=== PATIENT | male | born 1955 | race Caucasian/White ===

== ENCOUNTER 2019-08-08 11:50 | Emergency (ER) | payer MEDICARE, OTHER ==
[~2019-08-08] VITALS: Ht 185.4 cm; Wt 90.3 kg
--- NOTE | 2019-08-08 12:15 | ED Upper Extremity ---
General Chief Complaint: Upper Extremity Stated Complaint: LT WRIST INJ Source: patient Exam Limitations: no limitations History of Present Illness Date Seen by Provider: Aug 08, 2019 Time Seen by Provider: 12:05 Initial Comments The patient is a pleasant 64-year-old male who presents for evaluation of a left distal forearm and wrist injury. He states that he fell down last night. He has a superficial abrasion to the right forehead but denies any head pain or neck injury and did not lose consciousness. He is not anticoagulated. He is up-to-date with tetanus. He is alert and oriented 4, calm, and appears to be in no distress this time. Onset: yesterday Pain/Injury Location: left forearm (distal injury), left wrist (injury) Method of Injury: fell Modifying Factors: Improves With Movement (makes it worse) Allergies and Home Medications Patient Home Medication List Home Medication List Reviewed: Yes Review of Systems Constitutional: no symptoms reported EENTM: no symptoms reported Respiratory: no symptoms reported Cardiovascular: no symptoms reported Gastrointestinal: no symptoms reported Genitourinary: no symptoms reported Musculoskeletal: other (left distal forearm/wrist injury) Skin: no symptoms reported Psychiatric/Neurological: No Symptoms Reported All Other Systems Reviewed Negative Unless Noted: Yes Past Ameqldw-Ysmsek-Gjflyp Hx Past Med/Social Hx: Reviewed Nursing Past Med/Soc Hx Patient Social History Recent Foreign Travel: No Physical Exam Vital Signs Vital Signs - First Documented 08/08/19 12:00 Temp 36.7 Pulse 96 Resp 18 B/P (MAP) 146/86 (106) Pulse Ox 98 O2 Delivery Room Air Capillary Refill : Height, Weight, BMI Height: '" Weight: lbs. oz. kg; BMI Method: General Appearance: WD/WN, no apparent distress HEENT: PERRL/EOMI, pharynx normal, other (abrasion to right forehead) Neck: non-tender, full range of motion, supple, normal inspection Cardiovascular: regular rate, rhythm, no edema, no JVD Respiratory: chest non-tender, lungs clear, normal breath sounds, no respiratory distress Gastrointestinal: normal bowel sounds, non tender, soft Shoulder: normal inspection, non-tender, no evidence of injury, normal ROM Elbow/Forearm: normal inspection, non-tender, no evidence of injury, normal ROM Wrist: Yes soft tissue tenderness (left wrist), Yes swelling (left distal forearm and wrist) Hand: bone tenderness (left distal forearm dorsally) Neurologic/Tendon: normal sensation, normal motor functions, normal tendon functions Neurologic/Psychiatric: yarn hauler II-XII nml as tested, no motor/sensory deficits, alert, normal mood/affect, oriented x 3 Skin: normal color, warm/dry Progress/Results/Core Measures Results/Orders My Orders Orders - YON SILVA DO Wrist 2 View Left (08/08/19 12:12) Forearm 2 View Left (08/08/19 12:12) Vital Signs/I&O 08/08/19 12:00 Temp 36.7 Pulse 96 Resp 18 B/P (MAP) 146/86 (106) Pulse Ox 98 O2 Delivery Room Air Progress Progress Note : Progress Note @1315 - patient updated on imaging results which are unremarkable. Advised patient to follow up with his PCP in the next 1-2 days. Velcro wrist splint applied for comfort. Advised patient to take Tylenol or ibuprofen at home for pain relief and to apply ice as needed. Departure Impression Primary Impression: Left wrist injury Additional Impression: Injury of left forearm Disposition: 01 HOME, SELF-CARE Condition: Stable Departure-Patient Inst. Decision time for Depature: 13:16 Referrals: NO,LOCAL PHYSICIAN (PCP/Family) Primary Care Physician Patient Instructions: Common Wrist Injuries (DC) Add. Discharge Instructions: Take Tylenol or ibuprofen at home for pain relief. Wear the splint provided. Follow-up with your doctor in the next 1-2 days. Return to the emergency Department immediately for new or worsening symptoms. YON SILVA DO Aug 08, 2019 12:15 POS
--- NOTE | 2019-08-08 12:36 | Diagnostic Imaging Report ---
INDICATION: Fall with left arm pain. Time of exam 11:59 AM 2 views left forearm were obtained. Alignment at the wrist and elbow appears normal. The radius and ulna appear intact. No fractures are seen. IMPRESSION: No acute bony abnormalities detected. Dictated by: Dictated on workstation # [id number]
--- NOTE | 2019-08-08 12:38 | Diagnostic Imaging Report ---
INDICATION: Fall with left wrist pain. TIME OF EXAM: 11:58 a.m. FINDINGS: Two views of the left wrist were obtained. Distal radius and ulna are intact. Carpals and metacarpals are intact. No fractures are seen. IMPRESSION: No acute bony abnormality is detected. Dictated by: Dictated on workstation # [id number]
[2019-08-08 13:32] VITALS: BP 143/77
== END 2019-08-08 13:45 | disposition home or self-care (01) ==
LOC: ER FS 11:52
DX: S69.92XA Unspecified injury of left wrist, hand and finger(s), initial encounter (principal); S59.912A Unspecified injury of left forearm, initial encounter; S00.81XA Abrasion of other part of head, initial encounter; W19.XXXA Unspecified fall, initial encounter
CPT/HCPCS: 73090; 73100

== ENCOUNTER → 2019-09-02 | Outpatient (CLI) | payer MEDICARE ==
--- NOTE | 2019-09-02 12:48 | Diagnostic Imaging Report ---
INDICATION: Wrist pain after fall. Two views were obtained. FINDINGS: There is a slight cortical irregularity involving the distal aspect of the scaphoid, suspect for subacute nondisplaced fracture. There is no other fracture or dislocation. Soft tissues are unremarkable. IMPRESSION: Findings suspect for subacute nondisplaced fracture of the distal scaphoid. Recommend clinical correlation, and if warranted, this could be better evaluated with either MRI or CT. Dictated by: Dictated on workstation # [id number]
--- NOTE | 2019-09-02 13:16 | Diagnostic Imaging Report ---
INDICATION: Shoulder pain after fall. FINDINGS: There is some arthrosis of the acromioclavicular joint. There is no fracture or dislocation. Left lung is clear. Soft tissues are unremarkable. IMPRESSION: Arthrosis of the acromioclavicular joint, otherwise unremarkable. Dictated by: Dictated on workstation # [id number]
== END ==
LOC: RAD FS 10:42
PROVIDERS: ATTEND Nurse Practitioner
DX: M19.012 Primary osteoarthritis, left shoulder (principal); M25.532 Pain in left wrist; W19.XXXA Unspecified fall, initial encounter
CPT/HCPCS: 73030; 73100

== ENCOUNTER → 2019-09-30 | Outpatient (CLI) | payer MEDICARE ==
--- NOTE | 2019-09-30 15:55 | Diagnostic Imaging Report ---
INDICATION: Left wrist pain. TECHNIQUE: AP, oblique, and lateral views of the left wrist are obtained as well as a scaphoid view. COMPARISON: Comparison made to 09/02/2019. FINDINGS: Scaphoid fracture is again noted without change in alignment compared to the prior study. Underlying degenerative changes of the radiocarpal joint and first carpometacarpal joint are noted. IMPRESSION: No change in alignment of midpole scaphoid fracture compared to the previous study. Underlying degenerative findings are stable. Dictated by: Dictated on workstation # [id number]
== END ==
LOC: RAD FS 15:05
PROVIDERS: ATTEND Nurse Practitioner
DX: S62.015A Nondisplaced fracture of distal pole of navicular [scaphoid] bone of left wrist, initial encounter for closed fracture (principal)
CPT/HCPCS: 73110

== ENCOUNTER → 2019-10-10 | Outpatient (CLI) | payer MEDICARE ==
--- NOTE | 2019-10-10 13:29 | Diagnostic Imaging Report ---
PROCEDURE: MRI left upper extremity without contrast. TECHNIQUE: Multiplanar, multisequence non contrast-enhanced MRI of the left upper extremity was accomplished. INDICATION: Left shoulder pain, recent fall. COMPARISON: Radiographs from 09/02/2019. FINDINGS: No acute fracture or dislocation is seen in the left shoulder. Subcortical cystlike changes are seen at the superior glenoid, likely degenerative. Alignment is normal. There is no joint effusion. There are moderate degenerative changes in the acromioclavicular joint. The supraspinatus tendon demonstrates no high-grade partial-thickness or full-thickness tears. The infraspinatus tendon appears intact. The teres minor tendon is intact. The subscapularis tendon demonstrates a small high-grade partial thickness tear measuring approximately 6 mm wide at the caudal fibers near the footplate. This is at the articular surface. There is no focal muscular atrophy in the rotator cuff. The long of the biceps tendon appears normal in course and signal. The glenoid labrum is suboptimally evaluated in the absence of intra-articular contrast, but no paralabral cyst is seen. The acromion has a curved undersurface without hooking. There is a small amount of fluid in the subacromial subdeltoid bursa. The coracoclavicular and coracoacromial ligaments are intact. The soft tissues about the left shoulder demonstrate no acute abnormality. IMPRESSION: 1. Small high-grade partial thickness tear in the left subscapularis tendon. No muscular atrophy is seen. 2. Moderate degenerative changes in the left acromioclavicular joint. Mild subacromial subdeltoid bursitis. Dictated by: Dictated on workstation # [id number]
== END ==
LOC: RAD 11:45
PROVIDERS: ATTEND Nurse Practitioner
DX: M75.122 Complete rotator cuff tear or rupture of left shoulder, not specified as traumatic (principal); M75.52 Bursitis of left shoulder; M19.012 Primary osteoarthritis, left shoulder
CPT/HCPCS: 73221

== ENCOUNTER 2020-08-02 13:18 | Inpatient (IN) | payer MEDICARE ==
[~2020-08-02] VITALS: Ht 185.4 cm; Wt 96.8 kg
[2020-08-02] MEDS ORDERED: NITROGLYCERIN 0.4 MG SL TABS BTL 25'S SL ONE (13:27)
[2020-08-02] MEDS ORDERED: ASPIRIN 81 MG CHEW (CHILDREN'S ASA) ONE (13:28)
[2020-08-02] MEDS: NITROGLYCERIN 0.4 MG SL TABS BTL 25'S SL PRN ×5 (13:39→19:56)
--- NOTE | 2020-08-02 13:42 | ED Chest Pain ---
General Chief Complaint: Chest Pain Stated Complaint: CHEST PAIN Source: patient Exam Limitations: no limitations History of Present Illness Date Seen by Provider: Aug 02, 2020 Time Seen by Provider: 13:30 Initial Comments Patient is a 65-year-old male who presents to the emergency room today with chief complaint of chest pain. Patient states that he has had palpitations and chest heaviness for about the last 2 hours. Patient states that he was moving some heavy boxes when he had a sudden onset of symptoms. Patient states that he had accompanying intermittent nausea with shortness of breath and sweating. Patient relates that he has a history of 2 prior stent placements when he lived in [place] approximately 10 years ago. He is not on any daily medications not even baby aspirin daily. Patient states that he chews tobacco he does not smoke cigarettes. Patient denies any other past medical history including hypertension, diabetes, high cholesterol. Patient denies any recent illnesses such as fever, chills, cough, congestion, no other GI or symptoms reported. Patient is currently rating his heaviness at a "4". All other review of systems reviewed and negative except as stated above. Timing/Duration: 1-3 hours Severity/Quality: moderate, pressure Location: substernal Radiation: no radiation Activities at Onset: activity Prior CP/Workup: cardiac cath (History of 2 stents placed in the past) ASA po DESIGN/ANIMATION INSTRUCTOR: No NTG SL DESIGN/ANIMATION INSTRUCTOR: No Associated Symptoms: diaphoresis, nausea/vomiting, shortness of breath Allergies and Home Medications Allergies Coded Allergies: fentanyl (Verified Allergy, Mild, 08/03/20) reports causes bp to go "jimy high and heart rate to go real fast" Home Medications Aspirin 81 Mg Tablet.dr, 81 MG PO DAILY Prescribed by: OTONIEL WATKINS on 08/04/201100 Atorvastatin Calcium 80 Mg Tablet, 80 MG PO HS Prescribed by: OTONIEL WATKINS on 08/04/201100 Lisinopril 40 Mg Tablet, 20 MG PO DAILY Prescribed by: OTONIEL WATKINS on 08/04/201100 Metoprolol Succinate 50 Mg Tab.er.24h, 50 MG PO DAILY Prescribed by: OTONIEL WATKINS on 08/04/201100 Ticagrelor 90 Mg Tablet, 90 MG PO BID Prescribed by: OTONIEL WATKINS on 08/04/201100 Torsemide 10 Mg Tablet, 10 MG PO DAILY PRN for EDEMA, (Reported) Patient Home Medication List Home Medication List Reviewed: Yes Review of Systems Review of Systems Constitutional: no symptoms reported EENTM: No Symptoms Reported Respiratory: Shortness of Air Cardiovascular: Chest Pain Gastrointestinal: Nausea Genitourinary: No Symptoms Reported Musculoskeletal: no symptoms reported Skin: no symptoms reported All Other Systems Reviewed Negative Unless Noted: Yes Past Bczyrhd-Mfehxf-Mvhkzy Hx Patient Social History 2nd Hand Smoke Exposure: No Recent Hopitalizations: No Immunizations Up To Date Tetanus Booster (TDap): Less than 5yrs Seasonal Allergies Seasonal Allergies: No Past Medical History Surgeries: Yes (Rhinoplasty) Coronary Stent, Gallbladder, Orthopedic Respiratory: No Cardiac: No Neurological: No Genitourinary: No Gastrointestinal: No Musculoskeletal: No Chronic Back Pain Endocrine: No HEENT: No Cancer: No Psychosocial: No Integumentary: No Blood Disorders: No Physical Exam Vital Signs Vital Signs - First Documented Capillary Refill : Height, Weight, BMI Height: '" Weight: lbs. oz. kg; 26.00 BMI Method: General Appearance: No Apparent Distress, WD/WN HEENT: PERRL/EOMI Neck: Full Range of Motion Respiratory: Lungs Clear, Normal Breath Sounds, No Accessory Muscle Use, No Respiratory Distress Cardiovascular: No Gallop, No Murmur, Other (Irregular heartbeat noted in a bigeminal pattern at presentation, frequent PVCs noted on telemetry) Gastrointestinal: Normal Bowel Sounds, Non Tender, Soft Extremity: Normal Inspection, Normal Range of Motion Neurologic/Psychiatric: Alert, Oriented x3, No Motor/Sensory Deficits, Normal Mood/Affect Skin: Normal Color, Warm/Dry Progress/Results/Core Measures Results/Orders Lab Results Laboratory Tests Test 08/02/20 13:25 Range/Units White Blood Count 6.1 4.3-11.0 10^3/uL Red Blood Count 4.37 4.35-5.85 10^6/uL Hemoglobin 13.9 13.3-17.7 G/DL Hematocrit 40 40-54 % Mean Corpuscular Volume 92 80-99 FL Mean Corpuscular Hemoglobin 32 25-34 PG Mean Corpuscular Hemoglobin Concent 35 32-36 G/DL Red Cell Distribution Width 12.2 10.0-14.5 % Platelet Count 201 130-400 10^3/uL Mean Platelet Volume 10.8 H 7.4-10.4 FL Immature Granulocyte % (Auto) 1 % Neutrophils (%) (Auto) 60 42-75 % Lymphocytes (%) (Auto) 28 12-44 % Monocytes (%) (Auto) 8 0-12 % Eosinophils (%) (Auto) 2 0-10 % Basophils (%) (Auto) 1 0-10 % Neutrophils # (Auto) 3.7 1.8-7.8 X 10^3 Lymphocytes # (Auto) 1.7 1.0-4.0 X 10^3 Monocytes # (Auto) 0.5 0.0-1.0 X 10^3 Eosinophils # (Auto) 0.1 0.0-0.3 10^3/uL Basophils # (Auto) 0.0 0.0-0.1 10^3/uL Immature Granulocyte # (Auto) 0.0 0.0-0.1 10^3/uL Prothrombin Time 12.3 12.2-14.7 SEC INR Comment 0.9 0.8-1.4 Activated Partial Thromboplast Time 26 24-35 SEC Sodium Level 141 135-145 MMOL/L Potassium Level 4.6 3.6-5.0 MMOL/L Chloride Level 105 98-107 MMOL/L Carbon Dioxide Level 24 21-32 MMOL/L Anion Gap 12 5-14 MMOL/L Blood Urea Nitrogen 14 7-18 MG/DL Creatinine 0.75 0.60-1.30 MG/DL Estimat Glomerular Filtration Rate > 60 BUN/Creatinine Ratio 19 Glucose Level 101 70-105 MG/DL Calcium Level 9.3 8.5-10.1 MG/DL Troponin I < 0.30 <0.30 NG/ML My Orders Orders - GINGER CONNOR MD Cbc With Automated Diff (08/02/20 13:28) Basic Metabolic Panel (08/02/20 13:28) Creatine Kinase Mb (08/02/20 13:28) Troponin I Fs (08/02/20 13:28) Protime With Inr (08/02/20 13:28) Partial Thromboplastin Time (08/02/20 13:28) Ekg Tracing (08/02/20 13:28) Chest 1 View Ap/Pa Only (08/02/20 13:28) Nitroglycerin 0.4 Mg Btl 25's (Nitrostat (08/02/20 13:27) Aspirin Chewable Tablet (Baby Aspirin Ch (08/02/20 13:28) Nitroglycerin 0.4 Mg Btl 25's (Nitrostat (08/02/20 13:30) Aspirin Chewable Tablet (Baby Aspirin Ch (08/03/20 09:00) Alprazolam Tablet (Xanax Tablet) (08/02/20 14:05) Ticagrelor Tablet (Brilinta Tablet) (08/02/20 14:15) Enoxaparin Injection (Lovenox Injection) (08/02/20 14:15) Medications Given in ED Current Medications Medications Dose Ordered Sig/Awa Route Start Time Stop Time Status Last Admin Dose Admin Nitroglycerin 4 mg NEEDED PRN SL 08/02/20 13:30 08/02/20 13:50 0.4 MG Vital Signs/I&O 08/02/20 08/02/20 13:20 13:20 Temp 36.4 Pulse 105 Resp 22 B/P (MAP) 180/77 (111) Pulse Ox 99 O2 Delivery Nasal Cannula Nasal Cannula O2 Flow Rate 2.0 2.0 Progress Progress Note : Time: 13:40 Progress Note 65-year-old male presents with chest pressure associated with nausea, sweating and shortness of breath. Onset of symptoms approximately 2-1/2 hours prior to arrival. Patient has a known history of coronary artery disease with 2 prior stent placements after a stress test. Patient is comfortable in the room rating his pain at a "4". Has been treated with full-strength aspirin as well as sublingual nitroglycerin. Awaiting cardiac enzymes and basic laboratory studies. EKG shows tachycardia at 100 with slightly prolonged QTC at 484. He has multiple PVCs noted on presentation with an underlying sinus rhythm. We will write laboratory studies and anticipate transfer to [facility] for further cardiac evaluation. Initial ECG Impression Date: Aug 02, 2020 Initial ECG Impression Time: 13:21 Initial ECG Rate: 100 Initial ECG Rhythm: Normal Sinus Initial ECG Intervals: QT Comment PVC's noted Departure Communication (Admissions) Time/Spoke to Admitting Phy: 14:[address] Lomax requests consultation with Dr Jacob Time/Spoke to Consulting Phy: 14:[address] Jacob; requests a 3 hr troponin, 180mg of brillinta, Lovenox; echocardiogram in am and troponin in am Impression Primary Impression: Unstable angina Disposition: ADMITTED INPATIENT Condition: Stable Admissions Decision to Admit Reason: Admit from ER (General) Decision to Admit/Date: Aug 02, 2020 Time/Decision to Admit Time: 14:00 Departure-Patient Inst. Referrals: NO,LOCAL PHYSICIAN (PCP/Family) Primary Care Physician Scripts Metoprolol Succinate (Metoprolol Succinate) 50 Mg Tab.er.24h 50 MG PO DAILY for 30 Days, #30 TAB 0 Refills Prov: OTONIEL WATKINS MD 08/04/20 Atorvastatin Calcium (Atorvastatin Calcium) 80 Mg Tablet 80 MG PO HS for 30 Days, #30 TAB 0 Refills Prov: OTONIEL WATKINS MD 08/04/20 Lisinopril (Lisinopril) 40 Mg Tablet 20 MG PO DAILY for 30 Days, #30 TAB 0 Refills Prov: OTONIEL WATKINS MD 08/04/20 Ticagrelor (Brilinta) 90 Mg Tablet 90 MG PO BID for 30 Days, #60 TAB 0 Refills Prov: OTONIEL WATKINS MD 08/04/20 Aspirin (Aspirin EC) 81 Mg Tablet.dr 81 MG PO DAILY for 30 Days, #30 TAB 0 Refills Prov: OTONIEL WATKINS MD 08/04/20 GINGER CONNOR MD Aug 02, 2020 13:42
[2020-08-02 13:47] LABS: INR 0.9 (0.8-1.4); PROTHROMBIN TIME PATIENT 12.3 SEC (12.2-14.7)
[2020-08-02 13:48] LABS: BASOPHILS % (AUTO) 1 % (0-10); EOSINOPHILS % (AUTO) 2 % (0-10); HEMATOCRIT 40 % (40-54); HEMOGLOBIN 13.9 G/DL (13.3-17.7); LYMPHOCYTES # (AUTO) 1.7 X 10^3 (1.0-4.0); LYMPHOCYTES % (AUTO) 28 % (12-44); MEAN CORPUSCULAR HEMOGLOBIN 32 PG (25-34); MEAN CORPUSCULAR HGB CONC 35 G/DL (32-36); MEAN CORPUSCULAR VOLUME 92 FL (80-99); MEAN PLATELET VOLUME 10.8 FL (7.4-10.4); MONOCYTES % (AUTO) 8 % (0-12); NEUTROPHILS # (AUTO) 3.7 X 10^3 (1.8-7.8); NEUTROPHILS % (AUTO) 60 % (42-75); PLATELET COUNT 201 10^3/uL (130-400); WHITE BLOOD COUNT 6.1 10^3/uL (4.3-11.0)
[2020-08-02 13:49] LABS: EOSINOPHILS # (AUTO) 0.1 10^3/uL (0.0-0.3); MONOCYTES # (AUTO) 0.5 X 10^3 (0.0-1.0)
--- NOTE | 2020-08-02 13:51 | Diagnostic Imaging Report ---
INDICATION: Chest pain. EXAMINATION: Single-view chest from 08/02/2020. FINDINGS: There are scattered linear densities throughout the lungs, likely areas of chronic interstitial change. No definite infiltrates, effusions, or pneumothorax. Heart is unremarkable. Pulmonary vasculature may be slightly congested. IMPRESSION: 1. Possible mild pulmonary vascular congestion. Remaining findings have a chronic appearance. Dictated by: Dictated on workstation # [id number]
[2020-08-02 13:54] LABS: BUN/CREATININE RATIO 19; CALCIUM 9.3 MG/DL (8.5-10.1); CARBON DIOXIDE 24 MMOL/L (21-32); CHLORIDE 105 MMOL/L (98-107); CREATININE SERUM 0.75 MG/DL (0.60-1.30); GFR ESTIMATED > 60; GLUCOSE 101 MG/DL (70-105); POTASSIUM 4.6 MMOL/L (3.6-5.0); SODIUM 141 MMOL/L (135-145)
--- NOTE | 2020-08-02 14:00 | NUR ---
Patient re-evaluation: very vague describer of sx. Pt says some tightness but also reports heart still pounding. Pt has ST 105 with numerous unifocal PVC's. Pt is unable to rate from the intial pain of "4" but can state "still feel it." Pt reports his problem is anxiety. "I really need an anxiety med if possible." Spoke with Dr Peraza. is on phone with [facility] [place] [facility] protection engineer Dr Jacob, night auditor.
[2020-08-02] MEDS ORDERED: ALPRAZolam 0.5 MG (XANAX) TAB PO STA (14:05)
--- NOTE | 2020-08-02 14:05 | NUR ---
Dr Peraza has acceptance to admit to [facility]. Will also call surgical asst soa integration developer.
--- NOTE | 2020-08-02 14:10 | NUR ---
Xanax 0.5 mg given p[address] per Dr order for anxiety.
[2020-08-02] MEDS ORDERED: TICAGRELOR 90 MG TABLET (BRILINTA) PO ONE (14:15)
[2020-08-02] MEDS ORDERED: ENOXAPARIN 100 MG/1 ML (LOVENOX) SYR SC ONE (14:15)
--- NOTE | 2020-08-02 14:20 | NUR ---
[employer]ANG [employer] HOUSE CLEANERS SUPERVISOR WILL PLACE A BED ON THE TRACKER [facility].
--- NOTE | 2020-08-02 15:10 | NUR ---
Pending bed notification from [facility] [employer].
--- NOTE | 2020-08-02 15:20 | NUR ---
Text Crusher And Binder Operator bed number or question of length of further waiting.
--- NOTE | 2020-08-02 16:30 | NUR ---
[facility] paged for transfer to [place] and was notified they feel that the current EMS in service is too far away from [facility] for them to leave till they return.
--- NOTE | 2020-08-02 16:40 | NUR ---
Drawing a second Troponin on pt.
--- NOTE | 2020-08-02 16:40 | NUR ---
Spoke with Dr Peraza about the delays as she has questioned prolonged transfer, request to call EMS again.
--- NOTE | 2020-08-02 16:47 | NUR ---
Called back to EMS and request per Dr Peraza to transfer now as per need to facilitate further work up.
--- NOTE | 2020-08-02 17:10 | NUR ---
EMS has arrived.
--- NOTE | 2020-08-02 17:20 | NUR ---
EMS departing now. Notified vat house laborer of EMS departing [place] and reported the 2nd Troponin draw at 3 hrs is done and is normal also.
[2020-08-02 18:20] VITALS: BP 162/89
[2020-08-02 18:21] VITALS: BP 162/89
[2020-08-02 19:32] VITALS: BP 138/80
[2020-08-02 19:49] VITALS: BP 152/77
[2020-08-02] MEDS ORDERED: NS IV 1000 ML 1,000 ML ONE (19:49)
[2020-08-02 19:56] VITALS: BP 151/81
[2020-08-02] MEDS ORDERED: morphine INJ 4 MG/ML 1 ML (VIAL/SYRINGE) ONE (20:11)
[2020-08-02] MEDS: morphine INJ 4 MG/ML 1 ML (VIAL/SYRINGE) IVP PRN ×2 (20:13→22:32)
--- NOTE | 2020-08-02 20:15 | NUR ---
pt rating pain 8/10 medial chest. no radiation. pt grabbing chest stating that "it feels like someone is sitting on me". ekg done, vitals stable, nitro x3 admin with no relief- notified dr roibns-new orders received.
[2020-08-02] MEDS ORDERED: NITROGLYCERIN 0.4 MG SL TABS BTL 25'S SL PRN (20:30)
[2020-08-02] MEDS: NS IV 1000 ML 1,000 ML IV SCH (20:30)
[2020-08-02] MEDS ORDERED: ONDANSETRON 4 MG/2 ML (SDV) Z0FRAN IVP PRN (20:30)
[2020-08-02 21:35] VITALS: BP 180/77
--- NOTE | 2020-08-02 21:43 | NUR ---
ALBUTEROL PRN. INITIATE O2 TO KEEP SATS GREATER THAN 90%. RT TO REASSES OR REEVALUATE IN 72 HOURS OR NEEDED Addendum: 08/02/20 at 2143 by SILVIA JOHNSON RT Amended: Links added.
[2020-08-02] MEDS ORDERED: RT-ALBUTEROL/IPRATROPIUM 3 ML (DUONEB) VIAL INH PRN (21:45)
[2020-08-03] VITALS (13 sets, daily range): BP systolic 115–177; BP diastolic 55–137
[2020-08-03] MEDS: morphine INJ 4 MG/ML 1 ML (VIAL/SYRINGE) IVP PRN ×5 (01:03→20:10)
[2020-08-03 03:43] LABS: TRIGLYCERIDES 322 MG/DL (<150); VLDL CHOLESTEROL 64 MG/DL (5-40)
[2020-08-03 03:48] LABS: CHOLESTEROL 190 MG/DL (< 200); HDL CHOLESTEROL 43 MG/DL (40-60)
[2020-08-03] MEDS: ENOXAPARIN 100 MG/1 ML (LOVENOX) SYR SC SCH ×2 (04:35→16:14)
[2020-08-03] MEDS ORDERED: HEParin (CATH LAB) 2,000 ML IV ONE (06:37)
[2020-08-03] MEDS ORDERED: LIDOCAINE 1% INJ 20 ML 20 ML VIAL ONE (06:37)
[2020-08-03] MEDS: NS IV 1000 ML 1,000 ML IV SCH ×2 (06:40→13:52)
[2020-08-03] MEDS ORDERED: FLU QUAD HIGH DOSE 240 MCG/0.7 ML 2020-21 (FLUZONE) IM ONE (07:30)
[2020-08-03] MEDS: ASPIRIN E.C. 81 MG (ECOTRIN) TAB PO SCH (08:02)
[2020-08-03] MEDS ORDERED: ASPIRIN 81 MG CHEW (CHILDREN'S ASA) PO SCH (09:00)
[2020-08-03] MEDS ORDERED: TORS10TA5 PO (09:58)
[2020-08-03] MEDS ORDERED: IBUP1CAP11 PO (09:59)
--- NOTE | 2020-08-03 10:30 | NUR ---
SPOKE WITH THE PT AND WENT THRU THE EXT MED HISTORY TO COMPLETE THE MED REC ACCORDING TO THE PT THE ONLY PRESCRIPTION MEDICATION HE TAKES IS TORSEMIDE AND HE ONLY TAKES THAT PRN OTC MEDS: IBUPROFEN PM
--- NOTE | 2020-08-03 11:15 | NUR ---
LEANNA AT BEDSIDE EXPLAINING PROCEDURES AND PLAN OF CARE.
[2020-08-03] MEDS ORDERED: LORazepam INJ 2 MG/ML (ATIVAN) VIAL IVP ONE (12:00)
[2020-08-03] MEDS ORDERED: LORazepam INJ 2 MG/ML (ATIVAN) VIAL ONE (12:03)
[2020-08-03] MEDS ORDERED: MIDAZOLAM 5 MG/5 ML (VERSED) VIAL ONE (12:46)
[2020-08-03] MEDS ORDERED: fentaNYL INJECTION 100 MCG/2 ML AMP ONE (12:46)
--- NOTE | 2020-08-03 13:21 | History & Physical-Hospitalist ---
History of Present Illness HPI/Chief Complaint Kwaku Woodard is a 65-year-old male with past medical history of coronary artery disease who presented with chest pain. The pain is in the center of his chest and radiates to his left shoulder and back. He reports associated nausea and vomiting. He denies any diaphoresis. He reports some shortness of breath. He uses chewing tobacco. He has no family history of early coronary artery disease. He denies any pleuritic chest pain. He denies any positional changes. He reports that he was lifting boxes with a friend whenever the pain started. He denies any trauma. Source: patient Exam Limitations: no limitations Date Seen 08/03/20 Time Seen by a Provider: 10:05 Attending Physician Savanah Lomax MD PCP No,Local Physician Referring Physician Date of Admission Aug 02, 2020 at 14:05 Home Medications & Allergies Home Medications Reviewed patient Home Medication Reconciliation performed by pharmacy medication reconciliations battery service technician and/or nursing. Patients Allergies have been reviewed. Allergies Allergies Coded Allergies No Known Drug Allergies ([id number]/8/20) Past Xhjnpfx-Mgrgyr-Aulgjp Hx Past Med/Social Hx: Reviewed Nursing Past Med/Soc Hx Patient Social History Alcohol Use: Occasionally Uses Recreational Drug Use: No Type Used: Smokeless Tobacco 2nd Hand Smoke Exposure: No Recent Foreign Travel: No Contact w/other who traveled: No Recent Hopitalizations: No Recent Infectious Disease Expo: No Immunizations Up To Date Tetanus Booster (TDap): Less than 5yrs Seasonal Allergies Seasonal Allergies: No Past Medical History Surgeries: Coronary Stent, Gallbladder, Orthopedic Musculoskeletal: Chronic Back Pain History of Blood Disorders: No Family History FH: atrial fibrillation 17 FATHER Review of Systems Constitutional: no symptoms reported EENTM: no symptoms reported Respiratory: short of breath Cardiovascular: chest pain Gastrointestinal: vomiting Genitourinary: no symptoms reported Musculoskeletal: no symptoms reported Skin: no symptoms reported Psychiatric/Neurological: No Symptoms Reported Physical Exam Physical Exam Vital Signs Vital Signs - First Documented 08/02/20 21:35 FiO2 28 Capillary Refill : Less Than 3 Seconds Height, Weight, BMI Height: '" Weight: lbs. oz. kg; 29.35 BMI Method: General Appearance: No Apparent Distress, WD/WN HEENT: PERRL/EOMI, Pharynx Normal Neck: Normal Inspection, Supple Respiratory: Lungs Clear, Normal Breath Sounds, No Respiratory Distress Cardiovascular: Regular Rate, Rhythm, No Edema, No Murmur Gastrointestinal: Normal Bowel Sounds, Non Tender, Soft Extremity: Normal Inspection, Non Tender, No Pedal Edema Neurologic/Psychiatric: Alert, Oriented x3, No Motor/Sensory Deficits, Normal Mood/Affect Skin: Normal Color, Warm/Dry Results Results/Procedures Labs Laboratory Tests 08/02/20 13:25 Patient resulted labs reviewed. Imaging: Reviewed Imaging Report Assessment/Plan Admission Diagnosis unstable angina Admission Status: Inpatient Order (span 2 midnights) Reason for Inpatient Admission: UA requiring cardiology intervention Assessment and Plan Unstable angina Coronary artery disease Troponin and EKG remain normal Cardiology consulted, appreciate assistance Given loading doses of aspirin and Brilinta Lovenox therapeutic Planning for left heart catheterization today DVT Prophylaxis: already receiving therapeutic anticoagulation Diagnosis/Problems Diagnosis/Problems (1) Unstable angina Status: Acute (2) CAD (coronary artery disease) Status: Acute Qualifiers: [place] vs. transplanted heart: hoh heart Associated angina: with unstable angina Clinical Quality Measures AMI/AHF: ASA po Prior to arrival: No DVT/VTE Risk/Contraindication: Risk Factor Score Per Nursin RFS Level Per Nursing on Admit: 3=High OTONIEL WATKINS MD Aug 03, 2020 13:21
[2020-08-03] MEDS ORDERED: diphenhydrAMINE 50 MG/ML INJ (BENADRYL) ONE (13:32)
[2020-08-03] MEDS ORDERED: NS IV 1000 ML 1,000 ML ONE (13:51)
[2020-08-03] MEDS ORDERED: HEParin 1000 UNIT/ML (10ML VIAL) FOR BOLUS ONE (14:08)
[2020-08-03] MEDS ORDERED: ASPIRIN 325 MG (5 GR) TABLET ONE (14:09)
[2020-08-03] MEDS ORDERED: TICAGRELOR 90 MG TABLET (BRILINTA) PO ONE (14:09)
[2020-08-03] MEDS ORDERED: NITRO DRIP 25000 MCG/D5W 250 ML IV ONE (14:10)
--- NOTE | 2020-08-03 14:47 | Cardiac Procedure Note-CS/ASA ---
Pre-Procedure Note Pre-Op Procedure Note H&P Reviewed The H&P was reviewed, patient examined and no changes noted. Date H&P Reviewed: Aug 03, 2020 Time H&P Reviewed: 11:00 Conscious Sedation Pre-Proced Time 11:00 ASA Score 3 For ASA 3 and 4: Consider anesthesia and medical clearance. Also, for patients with a history of failed moderate sedation consider anesthesia. Airway Lungs Heart ASA score ASA 1: a normal healthy patient ASA 2: a patient with a mild systemic disease (mid diabetes, controlled hypertension, obesity ASA 3: a patient with a severe systemic disease that limits activity (angina, COPD, prior Myocardial infarction) ASA 4: a patient with an incapacitating disease that is a constant threat to life (CHF, renal failure) ASA 5: a moribund patient not expected to survive 24 hrs. (ruptured aneurysm) ASA 6: a declared brain- patient whose organs are being harvested. For emergent operations, add the letter E after the classification Mallampati Classification Grade 1 Sedation Plan Analgesia, Amnesia, Plan communicated to team members, Discussed options with patient/fam, Discussed risks with patient/fam The patient is an appropriate candidate to undergo the planned procedure, sedation, and anesthesia. The patient immediately re-assessed prior to indication. Loyd RAM MD Aug 03, 2020 14:47
--- NOTE | 2020-08-03 14:47 | Consultation-Cardiology ---
HPI-Cardiology Cardiology Consultation: Date of Consultation 08/03/20 Date of Admission Attending Physician Savanah Lomax MD Admitting Physician No,Local Physician Consulting Physician Loyd JACOB MD HPI: Time Seen by a Provider: 11:00 Chief Complaint: Chest pain This is a 65-year-old gentleman who has history of chewing tobacco, no pertinent family history, history of multiple PCI in [facility] 10 years ago. Presents with chest pain and chest heaviness for at least 2 hours. Associated with exertion. Moderate to severe intensity. 8/10. Also associated nausea, shortness of breath and diaphoresis. No radiation. Denies any other past medical history. The patient was transferred to [facility] but continued to have chest discomfort overnight requiring morphine and nitroglycerin. When I saw the patient he was still having some chest heaviness. Review of Systems-Cardiology Review of Systems Constitutional: As described under HPI; No As described under HPI, No no symptoms reported, No chills, No fever, No lightheadedness Eyes: No As described under HPI, No no symptoms reported, No blindness, No blurred vision, No contact lenses, No drainage, No decreased acuity, No foreign body sensation, No pain, No vision change Ears/Nose/Throat: No As described under HPI, No no symptoms reported, No chronic hearing loss, No ear discharge, No ear pain, No nasal drainage, No ulcerations Respiratory: No no symptoms reported; As described under HPI; No As described under HPI, No cough, No orthopnea, No shortness of breath, No SOB with excertion Cardiovascular: No no symptoms reported; As described under HPI; No As described under HPI; chest pain; No edema, No irregular heart rate, No lightheadedness, No palpitations Gastrointestinal: No no symptoms reported, No As described under HPI, No abdomen distended, No abdominal pain, No blood streaked bowels, No constipation, No diarrhea, No nausea, No vomiting, No stool coloration changes Genitourinary: No As described under HPI, No burning, No dysuria, No discharge, No frequency, No flank pain, No hematuria, No urgency Skin: No rash, No skin related problems, No ulcerations Psychiatric/Neurological: No anxiety, No depression, No seizure, No focal weakness, No syncope Hematologic: No bleeding abnormalities All Other Systems Reviewed Negative Unless Noted: Yes [id number]-[id number]-[id number] Hx Patient Social History Alcohol Use: Occasionally Uses Recreational Drug Use: No Type Used: Smokeless Tobacco 2nd Hand Smoke Exposure: No Recent Foreign Travel: No Recent Infectious Disease Expo: No Hospitalization with Isolation: Denies Immunizations Up To Date Tetanus Booster (TDap): Less than 5yrs Past Medical History PMH As described under Assessment. Family Medical History Family History: FH: atrial fibrillation 19 FATHER Allergies and Home Medications Allergies Coded Allergies: fentanyl (Verified Allergy, Mild, 08/03/20) reports causes bp to go "jimy high and heart rate to go real fast" Home Medications Aspirin 81 Mg Tablet.dr, 81 MG PO DAILY Prescribed by: OTONIEL WATKINS on 08/04/201100 Atorvastatin Calcium 80 Mg Tablet, 80 MG PO HS Prescribed by: OTONIEL WATKINS on 08/04/20 110 Lisinopril 40 Mg Tablet, 20 MG PO DAILY Prescribed by: OTONIEL WATKINS on 08/04/20 110 Metoprolol Succinate 50 Mg Tab.er.24h, 50 MG PO DAILY Prescribed by: OTONIEL WATKINS on 08/04/20 110 Ticagrelor 90 Mg Tablet, 90 MG PO BID Prescribed by: OTONIEL WATKINS on 08/04/20 110 Torsemide 10 Mg Tablet, 10 MG PO DAILY PRN for EDEMA, (Reported) Patient Home Medication List Home Medication List Reviewed: Yes Physical Exam-Cardiology Physical Exam Vital Signs/I&O 08/04/20 08/04/20 08/04/20 08/04/20 01:00 03:52 06:44 08:00 Temp 36.7 36.6 Pulse 52 61 57 61 Resp 16 20 B/P (MAP) 115/68 (84) 126/70 (88) Pulse Ox 95 97 O2 Delivery Room Air Room Air 08/04/20 08:05 O2 Delivery Room Air 08/04/20 00:00 Intake Total 1100 ml Output Total 650 ml Balance 450 ml Capillary Refill : Less Than 3 Seconds Constitutional: appears stated age; No apparent distress; well-developed, well- nourished HEENT: PERRL; No discharge; hearing is well preserved, oral hygience is good; No ulceration, No xanthelasmas are seen Neck: No carotid bruit; carotid pulses are 2 + bilaterally Respiratory: chest is bilaterally symmetric, lungs clear to auscultation Cardiovascular: regular rate-rhythm, S1 and S2; No diastolic murmur, No sy stolic murmur Gastrointestinal: soft, audible bowel sounds; No spleenomegaly Rectal: deferred Extremities: normal range of motion, non-tender, normal inspection; No clubbing, No cyanosis; no lower extremity edema bilateral; No significant edema Neurologic/Psychiatric: no motor/sensory deficits, alert, normal mood/affect, oriented x 3, power is 5/5 both on sides Skin: normal color; No rash, No ulcerations Data Review Labs Laboratory Tests 08/04/20 05:15: White Blood Count 6.9, Red Blood Count 3.73L, Hemoglobin 11.9L, Hematocrit 35L, Mean Corpuscular Volume 93, Mean Corpuscular Hemoglobin 32, Mean Corpuscular Hemoglobin Concent 34, Red Cell Distribution Width 12.0, Platelet Count 166, Mean Platelet Volume 11.1, Sodium Level 136, Potassium Level 3.7, Chloride Level 105, Carbon Dioxide Level 23, Anion Gap 8, Blood Urea Nitrogen 9, Creatinine 0.75, Estimat Glomerular Filtration Rate > 60, BUN/Creatinine Ratio 12, Glucose Level 107H, Calcium Level 8.3L ECG Impression ECG Initial ECG Rhythm: Normal Sinus Initial ECG Impression: Nonspecific Changes A/P-Cardiology Assessment/Admission Diagnosis Unstable angina, Tobacco use Plan Unstable angina, history of PCI. Refractory pain to medical therapy. Although serial troponin negative, however strong suspicion for obstructive CAD. I therefore discussed at length with the patient and recommended coronary angiography and possible intervention. 1-1-1/2 percent risk of complication was discussed with the patient including . Patient accepted all risk and would like to proceed with coronary angiography and possible intervention. Patient was given Lovenox, dual antiplatelet therapy. Tobacco cessation was strongly recommended. Thank you for your consultation. Please call me if you have any questions. Mendoza Jacob MD, FACP, FACC, FSCAI, FHRS, CCDS Interventional Cardiology Cardiac Electrophysiology Vascular Medicine and Endovascular Interventions Clinical Quality Measures AMI/AHF: ASA po Prior to arrival: No DVT/VTE Risk/Contraindication: Risk Factor Score Per Nursin RFS Level Per Nursing on Admit: 3=High Loyd JACOB MD Aug 03, 2020 14:47
[2020-08-03] MEDS ORDERED: NS IV 1000 ML 1,000 ML IV SCH (14:48)
--- NOTE | 2020-08-03 14:48 | Coronary Angiography & PCI ---
Coronary Angiography & PCI DATE OF PROCEDURE: 08/03/20 INDICATION: Unstable angina. PREOPERATIVE DIAGNOSIS: Unstable angina. POSTOPERATIVE DIAGNOSIS: Successful PCI to OM1 artery. HISTORY: This is a 65-year-old gentleman with history of CAD/PCI and active smoking. Prolonged episode of chest pain with numerous typical features. Working diagnosis of unstable angina. Therefore, the patient was scheduled for coronary angiography. PROCEDURES PERFORMED: 1.Coronary angiography. 2.Left heart catheterization. 3.PCI to the OM 1 artery with drug-eluting stent. COMPLICATIONS: None. SPECIMENS: None. ESTIMATED BLOOD LOSS: 10 mL ANESTHESIA: Conscious sedation ANTICOAGULATION: IV heparin CONTRAST: 144 mL. FLUOROSCOPY: 8.7 minutes. FLOUROSCOPY DOSE: 1561 mgy. PROCEDURE DETAILS: The patient is a 65 male and was brought to the catheterization laboratory technician after informed consent was taken. All the risks and complications were explained in detail; this included the risk of bleeding, vascular damage, stroke, CO and even . The patient was draped and prepped in the usual sterile fashion. Access was gained in the right femoral artery with a 5 Brazilian sheath. Coronary angiography was done with a JR4 and JL4 catheter. FINDINGS: 1.Left main: Patent. 2.LAD: LAD has a focal moderate to severe stenosis in the mid and distal segment. 3.Left circumflex artery: Severe disease in the mid segment of OM1. Patent segment and proximal left circumflex artery. Patent stent in proximal OM1 artery. 4.RCA: No significant disease in the proximal/mid segments. Dominant artery. Moderate to severe disease in the PDA branch. Small artery not suitable for PCI. 5.Left heart catheterization: RECOMMENDATIONS: PCI to OM1 is recommended. INTERVENTION DETAILS: Voda 3.5 guide catheter, whisper extra-support guidewire, IV heparin for anticoagulation. Patient was given Brilinta 180 mg before the procedure. 6000 units of IV heparin. The lesion was crossed with the whisper wire. Direct stenting with a science Stephanie 2.25 x 12 mm at 12 javi for 20 seconds. Postdilated with the Clickst Quantum 2.5 x 12 mm balloon at 20 javi for 44 seconds. Excellent results with no residual stenosis and DEENA-3 flow. Mild to moderate disease proximal to the previous stent left alone. Patient tolerated procedure well and did not have any complication. Minx closure to RFA. Patient was transferred to the recovery area with stable hemodynamics. CONCLUSIONS: 1. Successful PCI of the mid OM1 artery with drug eluting stent. 2. Long-term dual antiplatelet therapy. Smoking cessation was strongly recommended. High-dose Lipitor therapy. 3. We will arrange follow-up with one of our outpatient special librarian. Mendoza Jacob MD, FACP, FACC, [facility] Interventional Cardiology Loyd JACOB MD Aug 03, 2020 14:47
[2020-08-03] MEDS ORDERED: PATIENT MAY USE OWN MEDS, ALL PO SCH (15:00)
[2020-08-03 15:21] LABS: CREATINE KINASE MB 4.2 NG/ML (<6.6)
[2020-08-03] MEDS ORDERED: lisINopril 40 MG (PRINIVIL) TABLET ONE (15:29)
[2020-08-03] MEDS: lisINopril 40 MG (PRINIVIL) TABLET PO SCH (15:31)
[2020-08-03] MEDS: meTOproloL SUCCINATE 50 MG (TOPROL XL) TAB PO SCH (16:09)
--- NOTE | 2020-08-03 18:05 | NUR ---
PT INSISTS ON BEING ABLE TO SIT UP AT THIS TIME. THIS RN EDUCATES PT ON IMPORTANCE OF FOLLOWING ORDERS THAT DR. RAM HAS GIVEN REGARDING THE LENGTH OF HIS BEDREST TIME. PT STILL INSISTS TO SIT UP "NOW." THIS RN NOTIFIES LEANNA IMMEDIATELY. LEANNA STATES IT IS OK FOR THE PT TO SIT WITH HOB AT 30 DEGREES TO EAT AT THIS TIME, BUT THE HOB SHOULD NOT GO HIGHER THAN THAT UNTIL BEDREST IS UP. THIS RN THEN RELAYS MESSAGE TO PT. PT AGREES TO SIT WITH HOB AT 30 DEGREES.
[2020-08-03] MEDS: TICAGRELOR 90 MG TABLET (BRILINTA) PO SCH (20:09)
[2020-08-03] MEDS ORDERED: ZOLPIDEM 5 MG (AMBIEN) TAB PO PRN (20:45)
[2020-08-03] MEDS ORDERED: MELATONIN 3 MG TABLET PO PRN (20:45)
[2020-08-04] MEDS: NS IV 1000 ML 1,000 ML IV SCH (01:09)
[2020-08-04] MEDS: morphine INJ 4 MG/ML 1 ML (VIAL/SYRINGE) IVP PRN ×2 (02:58→06:06)
[2020-08-04 03:52] VITALS: BP 115/68
[2020-08-04] MEDS: ENOXAPARIN 100 MG/1 ML (LOVENOX) SYR SC SCH (04:30)
[2020-08-04 05:49] LABS: HEMOGLOBIN 11.9 g/dL (13.3-17.7); MEAN PLATELET VOLUME 11.1 fL (9.0-12.2); WHITE BLOOD COUNT 6.9 10^3/uL (4.3-11.0)
[2020-08-04 06:23] LABS: BUN/CREATININE RATIO 12; CALCIUM 8.3 MG/DL (8.5-10.1); CARBON DIOXIDE 23 MMOL/L (21-32); CHLORIDE 105 MMOL/L (98-107); CREATININE SERUM 0.75 MG/DL (0.60-1.30); GFR ESTIMATED > 60; GLUCOSE 107 MG/DL (70-105); POTASSIUM 3.7 MMOL/L (3.6-5.0); SODIUM 136 MMOL/L (135-145)
[2020-08-04 08:00] VITALS: BP 126/70
[2020-08-04] MEDS ORDERED: ASPIRIN E.C. 81 MG (ECOTRIN) TAB PO SCH (09:00)
[2020-08-04] MEDS: ASPIRIN E.C. 81 MG (ECOTRIN) TAB PO SCH (09:05)
[2020-08-04] MEDS: lisINopril 40 MG (PRINIVIL) TABLET PO SCH (09:05)
[2020-08-04] MEDS: meTOproloL SUCCINATE 50 MG (TOPROL XL) TAB PO SCH (09:05)
[2020-08-04] MEDS: TICAGRELOR 90 MG TABLET (BRILINTA) PO SCH (09:06)
[2020-08-04] MEDS ORDERED: LISI40TA PO (11:01)
[2020-08-04] MEDS ORDERED: METO50TA7 PO (11:01)
[2020-08-04] MEDS ORDERED: ATOR80TA76 PO (11:01)
[2020-08-04] MEDS ORDERED: TICA90TA PO (11:01)
[2020-08-04] MEDS ORDERED: ASPI-1238 PO (11:01)
--- NOTE | 2020-08-04 11:33 | NUR ---
CM/SS: Visited with pt as to plan for discharge related to medications Plan: Pt to discharge to home, with no identified services Summary: Pt is from home and will return there. Pt lives alone and has lived in [place] for one year. Pt reports he does have a ride and that he will be able to pecan picker medication from [facility], as they are called in. Pt is able to pay for the medications. Pt has not other questions. Pt does text his ride and let him know what entrance to be pecan picker at. Pt is wished well.
--- NOTE | 2020-08-04 11:58 | Cardiology Progress Note ---
Cardiology SOAP Progress Note Subjective: No further chest pain. Objective: I&O/Vital Signs 08/04/20 08/04/20 08/04/20 08/04/20 01:00 03:52 06:44 08:00 Temp 36.7 36.6 Pulse 52 61 57 61 Resp 16 20 B/P (MAP) 115/68 (84) 126/70 (88) Pulse Ox 95 97 O2 Delivery Room Air Room Air 08/04/20 08:05 O2 Delivery Room Air 08/04/20 00:00 Intake Total 1100 ml Output Total 650 ml Balance 450 ml Constitutional: appears stated age; No apparent distress; well-developed, well- nourished Respiratory: chest is bilaterally symmetric, lungs clear to auscultation Cardiovascular: regular rate-rhythm, S1 and S2; No diastolic murmur, No systolic murmur Gastrointestional: soft, audible bowel sounds; No spleenomegaly Extremities: normal range of motion, non-tender, normal inspection; No clubbing, No cyanosis; no lower extremity edema bilateral; No significant edema Neurologic/Psychiatric: no motor/sensory deficits, alert, normal mood/affect, oriented x 3, power is 5/5 both on sides Skin: normal color; No rash, No ulcerations Results/Procedures: Labs Laboratory Tests 08/04/20 05:15: White Blood Count 6.9, Red Blood Count 3.73L, Hemoglobin 11.9L, Hematocrit 35L, Mean Corpuscular Volume 93, Mean Corpuscular Hemoglobin 32, Mean Corpuscular Hemoglobin Concent 34, Red Cell Distribution Width 12.0, Platelet Count 166, Mean Platelet Volume 11.1, Sodium Level 136, Potassium Level 3.7, Chloride Level 105, Carbon Dioxide Level 23, Anion Gap 8, Blood Urea Nitrogen 9, Creatinine 0.75, Estimat Glomerular Filtration Rate > 60, BUN/Creatinine Ratio 12, Glucose Level 107H, Calcium Level 8.3L A/P: Assessment/Dx: Unstable angina, Tobacco use Plan: Unstable angina, history of PCI. Refractory pain to medical therapy. Coronary angiography done yesterday showed severe subtotal occlusion of OM 1. Stenosis severity 99 percent with haziness suggesting thrombus. Direct stenting was successful. Significant improvement in chest pain. Dual antiplatelet therapy, beta josé antonio, BEAN inhibitor and statin therapy. We will set up for the patient to follow with one of our accounting methods analyst. Tobacco cessation was strongly recommended. Thank you for your consultation. Please call me if you have any questions. Mendoza Jacob MD, FACP, FACC, FSCAI, FHRS, CCDS Interventional Cardiology Cardiac Electrophysiology Vascular Medicine and Endovascular Interventions Clinical Quality Measures AMI/AHF: ASA po Prior to arrival: Loyd Guardado MD Aug 04, 2020 11:58
[2020-08-04 12:20] VITALS: BP 126/70
--- NOTE | 2020-08-04 15:51 | Discharge Summary ---
Discharge Summary Hospital Course Was the Problem List Reviewed?: Yes Problems/Dx: (1) Unstable angina Status: Acute (2) CAD (coronary artery disease) Status: Acute Qualifiers: Hospital Course Date of Admission: Aug 02, 2020 at 14:05 Admission Diagnosis: Unstable angina Family Physician/Provider: Len Dunn Physician Date of Discharge: 08/04/20 Discharge Diagnosis: CAD with unstable angina Hospital Course: Kwaku Woodard is a 65-year-old male with past medical history of coronary artery disease who presented with chest pain and was admitted with unstable angina. Cardiology was consulted and assisted with his care. He underwent a left heart catheterization which revealed a 99 percent blockage of the OM1 branch of the left circumflex artery. A coronary stent was placed and he was started on as pirin Enbrel into. He was also started on Lipitor, metoprolol, and lisinopril. He should follow-up with his primary care physician. He should follow-up with cardiology. He was discharged home in stable condition. Labs and Pending Lab Test: Laboratory Tests 08/04/20 05:15: White Blood Count 6.9, Red Blood Count 3.73L, Hemoglobin 11.9L, Hematocrit 35L, Mean Corpuscular Volume 93, Mean Corpuscular Hemoglobin 32, Mean Corpuscular Hemoglobin Concent 34, Red Cell Distribution Width 12.0, Platelet Count 166, Mean Platelet Volume 11.1, Sodium Level 136, Potassium Level 3.7, Chloride Level 105, Carbon Dioxide Level 23, Anion Gap 8, Blood Urea Nitrogen 9, Creatinine 0.75, Estimat Glomerular Filtration Rate > 60, BUN/Creatinine Ratio 12, Glucose Level 107H, Calcium Level 8.3L Home Meds Active Metoprolol Succinate 50 Mg Tab.er.24h 50 Mg PO DAILY 30 Days Atorvastatin Calcium 80 Mg Tablet 80 Mg PO HS 30 Days Lisinopril 40 Mg Tablet 20 Mg PO DAILY 30 Days Brilinta (Ticagrelor) 90 Mg Tablet 90 Mg PO BID 30 Days Aspirin EC (Aspirin) 81 Mg Tablet.dr 81 Mg PO DAILY 30 Days Reported Torsemide 10 Mg Tablet 10 Mg PO DAILY PRN Assessment/Pt Instructions Take medications as prescribed. Follow-up with your primary care physician. Follow up with cardiology as scheduled. Return with worsening chest pain or if you feel like you're getting worse. Discharge Planning: <30 minutes discharge planning Discharge Instructions Discharge Diet: Low Sodium Diet Activity as Tolerated: Yes Pneumonia Vaccine Order Indica: Yes Discharge Physical Examination Vital Signs Vital Signs Date Time Temp Pulse Resp B/P (MAP) Pulse Ox O2 Delivery O2 Flow Rate FiO2 08/04/20 12:20 36.6 61 20 126/70 97 Room Air 2.00 08/03/20 16:09 21 General Appearance: No Apparent Distress, WD/WN Respiratory: Lungs Clear, Normal Breath Sounds, No Respiratory Distress Cardiovascular: Regular Rate, Rhythm, No Edema, No Murmur Gastrointestinal: Normal Bowel Sounds, Non Tender, Soft Extremity: Normal Inspection, Non Tender, No Pedal Edema Skin: Normal Color, Warm/Dry Neurologic/Psychiatric: Alert, Oriented x3, No Motor/Sensory Deficits, Normal Mood/Affect Allergies: Coded Allergies: fentanyl (Verified Allergy, Mild, 08/03/20) reports causes bp to go "jimy high and heart rate to go real fast" Discharge Summary Date of Admission Aug 02, 2020 at 14:05 Date of Discharge Aug 04, 2020 at 12:20 Discharge Date: Aug 04, 2020 Discharge Time: 12:30 Admission Diagnosis unstable angina Consults/Procedures Consulations cardiology Procedures left heart catheterization Discharge Diagnosis Unstable angina (1) Unstable angina Status: Acute (2) CAD (coronary artery disease) Status: Acute Qualifiers: (3) S/P coronary artery stent placement Status: Acute Clinical Quality Measures AMI/AHF: ASA po Prior to arrival: No DVT/VTE Risk/Contraindication: Risk Factor Score Per Nursin RFS Level Per Nursing on Admit: 3=High OTONIEL WATKINS MD Aug 04, 2020 15:51
== END 2020-08-04 12:20 | disposition home or self-care (01) | DRG 247 ==
LOC: EDUNIT# 13:18 → ER FS 13:20 → CSD 14:05 → ER FS 17:20 → 4TH 08-03 19:43
PROVIDERS: ADMIT Family Medicine; ATTEND Family Medicine
PROC: 027034Z Dilation of Coronary Artery, One Artery with Drug-eluting Intraluminal Device, Percutaneous Approach (ICD-10-PCS; principal; 2020-08-03)
PROC: 4A023N7 Measurement of Cardiac Sampling and Pressure, Left Heart, Percutaneous Approach (ICD-10-PCS; 2020-08-03)
PROC: B2111ZZ Fluoroscopy of Multiple Coronary Arteries using Low Osmolar Contrast (ICD-10-PCS; 2020-08-03)
PROC: B2151ZZ Fluoroscopy of Left Heart using Low Osmolar Contrast (ICD-10-PCS; 2020-08-03)
DX: I25.110 Atherosclerotic heart disease of native coronary artery with unstable angina pectoris (principal); I49.3 Ventricular premature depolarization; F17.220 Nicotine dependence, chewing tobacco, uncomplicated; M54.9 Dorsalgia, unspecified; Z95.5 Presence of coronary angioplasty implant and graft
CPT/HCPCS: 36415; 71045; 80048; 80061; 82553; 84484; 85025; 85027; 85610; 85730; 93005; 93306; 93458; 93459; 94760

== ENCOUNTER → 2020-12-17 | Outpatient (CLI) | payer MEDICARE ==
[~2020-12-17] MED LIST: ASPI-1238 PO; ATOR80TA76 PO; IBUP1CAP11 PO; LISI40TA9 PO; METO50TA7 PO; TICA90TA PO; TORS10TA5 PO
[2020-12-17 10:00] LABS: ALANINE AMINOTRANSFERASE 44 U/L (0-55); ALBUMIN 4.3 GM/DL (3.2-4.5); ALKALINE PHOSPHATASE 64 U/L (40-136); BILIRUBIN,TOTAL 0.4 MG/DL (0.1-1.0); BUN/CREATININE RATIO 18; CALCIUM 9.2 MG/DL (8.5-10.1); CARBON DIOXIDE 26 MMOL/L (21-32); CHLORIDE 104 MMOL/L (98-107); CHOLESTEROL 150 MG/DL (< 200); GFR ESTIMATED > 60; GLUCOSE 106 MG/DL (70-105); HDL CHOLESTEROL 57 MG/DL (40-60); POTASSIUM 4.8 MMOL/L (3.6-5.0); SODIUM 137 MMOL/L (135-145); TOTAL PROTEIN 7.2 GM/DL (6.4-8.2); TRIGLYCERIDES 101 MG/DL (<150); VLDL CHOLESTEROL 20 MG/DL (5-40)
== END ==
LOC: LAB 09:25
PROVIDERS: ATTEND Internal Medicine Cardiovascular Disease
DX: I25.10 Atherosclerotic heart disease of native coronary artery without angina pectoris (principal)
CPT/HCPCS: 36415; 80053; 80061

== ENCOUNTER → 2021-02-05 | Outpatient (CLI) | payer MEDICARE ==
--- NOTE | 2021-02-05 16:49 | Diagnostic Imaging Report ---
Thoracic spine at 2:37. INDICATION: Mid back pain AP, lateral and swimmer's views were obtained. There are no prior thoracic spine studies available for comparison. The lateral view shows the vertebral body heights and alignment to be generally within normal limits. There is mild degenerative disc disease throughout the thoracic spine. There is no fracture or acute bony abnormality appreciated. There is no sign of a paraspinal mass. The bilateral pedicle screws overlying the lower cervical spine seen on the prior chest exam of 08/02/2020 are again evident and no different. IMPRESSION: 1. There is no evidence for acute bony abnormality. 2. If clinical concern regarding an underlying abnormality persists and further imaging is desired, then MRI would be recommended. Dictated by: Dictated on workstation # [id number]
--- NOTE | 2021-02-05 16:53 | Diagnostic Imaging Report ---
Lumbar spine. Indication: Back pain AP, lateral and spot lateral views were obtained. There are no prior studies available for comparison. There are pedicle screws in place on the left at L5 and S1. There also appears to be an interbody device at this level.. The orthopedic hardware seems to be in good position. There is narrowing of the disc space at L5-S1 with sclerosis of the opposing endplates of L5 and S1. The lateral view also shows slight anterior translation of L4 with respect to L5. The alignment of the other vertebral bodies is within normal limits. The intervertebral spaces are fairly well-maintained. There is no fracture or acute bony abnormality appreciated. There is no sign of a paraspinal mass but there are a number of small metallic ringlike densities overlying the right mid abdomen. These can only see be seen on the AP view. There is modest sclerosis of the left sacroiliac joint and mild sclerosis of the right sacroiliac joint. Impression: 1. There is no evidence for an acute bony abnormality. 2. There are postsurgical and degenerative changes at L5-S1. 3. If there is clinical concern regarding spinal stenosis or nerve root encroachment, then MRI would be recommended for further evaluation. Dictated by: Dictated on workstation # [id number]
== END ==
LOC: RAD FS 14:21
PROVIDERS: ATTEND Nurse Practitioner Family
DX: M47.817 Spondylosis without myelopathy or radiculopathy, lumbosacral region (principal)
CPT/HCPCS: 72070; 72100

== ENCOUNTER → 2021-02-10 | Outpatient (CLI) | payer MEDICARE ==
[~2021-02-10] MED LIST changes: +GADOBUTROL 10 MMOL/10 ML (GADAVIST) VIAL IV ONE
--- NOTE | 2021-02-10 18:50 | Diagnostic Imaging Report ---
PROCEDURE: MRI lumbar spine with and without contrast. TECHNIQUE: Multiplanar, multisequence MRI of the lumbar spine was performed with and without contrast. INDICATION: Chronic back pain. History of lumbar surgery. COMPARISON: Correlated with plain films dated 02/05/2021. I have no previous dedicated lumbar MRI. FINDINGS: Left-sided L5-S1 posterior and interbody fusion performed. Alignment across the L5-S1 level is stable and anatomic. There is grade 1 anterolisthesis of L4 on L5. Posterior cortices are off about 2 mm. This is unchanged from the comparison. No identifiable spondylolysis defect. Lumbar statures are within normal limits. No suspicious marrow signal abnormality following contrast administration. There was no abnormal spinal or paraspinal enhancement. There is partial sacralization of the L5 segment. The lower thoracic cord and conus appear normal. T12-L1: This level and disc are normal. There is no stenosis. L1-L2: This level and disc are normal. There is no stenosis. L2-L3: This level and disc are normal. There is no stenosis. L3-L4: There is slight disc desiccation, stature loss and circumferential bulge. There is mild thickening of the ligamenta flava and facet arthrosis. There is no substantial canal stenosis, however, there is mild left and moderate right neural foraminal stenosis with eccentric disc bulge to the right. L4-L5: Disc desiccation and stature loss. There is facet arthrosis and thickening of the ligamenta flava. There is mild to moderate magnitude of central canal stenosis and at least mild biforaminal narrowing. Left foramen partially obscured by blooming artifact from hardware. L5-S1: Posterior left-sided and interbody fusion showed no complicating feature. The right neural foramen widely patent, the left is obscured from visualization by artifact. No appreciable recess stenosis and no significant narrowing of the spinal canal. IMPRESSION: 1. No finding of fracture, infection, neoplasm or fluid collection. No acute bony pathology. No finding to suggest L5-S1 pseudoarthrosis. 2. Multilevel degenerative changes to the discs, endplates and posterior elements with predominantly mild or mild to moderate canal and foraminal stenoses detailed level by level above. Dictated by: Dictated on workstation # [id number]
== END ==
LOC: RAD 13:15
PROVIDERS: ATTEND Nurse Practitioner Family
DX: M47.816 Spondylosis without myelopathy or radiculopathy, lumbar region (principal); M51.36 Other intervertebral disc degeneration, lumbar region; M51.26 Other intervertebral disc displacement, lumbar region; M48.061 Spinal stenosis, lumbar region without neurogenic claudication; M43.16 Spondylolisthesis, lumbar region; M53.3 Sacrococcygeal disorders, not elsewhere classified; Z98.1 Arthrodesis status
CPT/HCPCS: 72158

== ENCOUNTER 2021-07-06 19:39 | Emergency (ER) | payer MEDICARE ==
[~2021-07-06 19:39] MED LIST changes: -GADOBUTROL 10 MMOL/10 ML (GADAVIST) VIAL IV ONE
--- NOTE | 2021-07-06 19:53 | ED Fall/Injury ---
General Chief Complaint: Trauma-Non Activation Stated Complaint: FALL,BACK PAIN History of Present Illness Date Seen by Provider: Jul 06, 2021 Time Seen by Provider: 19:48 Initial Comments 58-year-old male presents with low back pain. Patient states he tripped over his dog and fell on his back on the floor straining his back. Past medical history significant for chronic back pain and effusion done in the late . Followed by pain management as well as his PCP and takes daily hydrocodone for back pain. Denies any radiation of pain or weakness. Denies loss of bowel or bladder control. Patient ambulates to the ER using a cane and assisted to the room in a wheelchair. Allergies and Home Medications Allergies Coded Allergies: fentanyl (Verified Allergy, Mild, 08/03/20) reports causes bp to go "jimy high and heart rate to go real fast" ketorolac (Verified Allergy, Unknown, 07/06/21) Patient Home Medication List Home Medication List Reviewed: Yes Aspirin (Aspirin EC) 81 Mg Tablet.dr, 81 MG PO DAILY Prescribed by: OTONIEL WATKINS on 08/04/20 1101 Atorvastatin Calcium (Atorvastatin Calcium) 80 Mg Tablet, 80 MG PO HS Prescribed by: OTONIEL WATKINS on 08/04/20 1101 Lisinopril (Lisinopril) 40 Mg Tablet, 20 MG PO DAILY Prescribed by: OTONIEL WATKINS on 08/04/20 1101 Metoprolol Succinate (Metoprolol Succinate) 50 Mg Tab.er.24h, 50 MG PO DAILY Prescribed by: OTONIEL WATKINS on 08/04/20 1101 Ticagrelor (Brilinta) 90 Mg Tablet, 90 MG PO BID Prescribed by: OTONIEL WATKINS on 08/04/20 1101 Torsemide (Torsemide) 10 Mg Tablet, 10 MG PO DAILY PRN for EDEMA, (Reported) Entered as Reported by: SAÚL ALBARADO on 08/03/20 0958 Review of Systems Review of Systems Constitutional: No malaise, No weakness Respiratory: no symptoms reported Cardiovascular: no symptoms reported Gastrointestinal: no symptoms reported Musculoskeletal: see HPI, back pain; No joint pain; muscle pain; No neck pain Psychiatric/Neurological: Denies Numbness, Denies Paresthesia, Denies Weakness Past Juzpmyn-Awuylm-Dlwyez Hx Patient Social History Tobacco Use?: No Use of E-Cig and/or Vaping dev: No Substance use?: No Alcohol Use?: No Immunizations Up To Date Tetanus Booster (TDap): Less than 5yrs Seasonal Allergies Seasonal Allergies: No Past Medical History Surgeries: Yes (Rhinoplasty, Fusions neck and back for fractures) Coronary Stent, Gallbladder, Orthopedic Respiratory: No Cardiac: Yes (Coronary stents x 2, off blood thinner) Neurological: No Genitourinary: No Gastrointestinal: No Musculoskeletal: No Chronic Back Pain Endocrine: No HEENT: No Cancer: No Psychosocial: No Integumentary: No Blood Disorders: No Family Medical History FH: atrial fibrillation 19 FATHER Physical Exam Vital Signs Vital Signs - First Documented 07/06/21 19:41 Temp 36.5 Pulse 60 Resp 18 B/P (MAP) 146/74 (98) Pulse Ox 97 O2 Delivery Room Air Capillary Refill : Height, Weight, BMI Height: '" Weight: lbs. oz. kg; 29.35 BMI Method: General Appearance: WD/WN, no apparent distress Back: normal inspection, no CVA tenderness, decreased range of motion, muscle spasm (patient w non-localized, generalized back pain low back and spine. No ecchymosis or edema, no abrasion), vertebral tenderness Progress/Results/Core Measures Results/Orders My Orders Orders - MY MARTINEZ DO Hydrocodone/Apap 5/325 Tablet (Lortab 5 (07/06/21 20:00) Hydrocodone/Apap 5/325 Tablet (Lortab 5 (07/06/21 19:57) Medications Given in ED Current Medications Medications Dose Ordered Sig/Awa Route Start Time Stop Time Status Last Admin Dose Admin Acetaminophen/ Hydrocodone Bitart 1 ea ONCE ONCE PO 07/06/21 20:00 07/06/21 20:00 DC 07/06/21 19:58 1 EA Vital Signs/I&O 07/06/21 07/06/21 19:41 19:59 Temp 36.5 36.5 Pulse 60 60 Resp 18 18 B/P (MAP) 146/74 (98) 146/74 Pulse Ox 97 97 O2 Delivery Room Air Room Air Progress Progress Note : Progress Note offered to do x-rays of his back, pt declines stating he didn't break anything, he just needs something for pain. Took a hydrocodone and a flexeril around 6 pm tonight Departure Impression Primary Impression: Low back strain Qualified Codes: S39.012A - Strain of muscle, fascia and tendon of lower back, initial encounter Additional Impression: Chronic back pain Qualified Codes: M54.5 - Low back pain; G89.29 - Other chronic pain Disposition: 01 HOME, SELF-CARE Condition: Stable Departure-Patient Inst. Decision time for Depature: 19:52 Referrals: ELIZABETH BENDER APRN (PCP/Family) Primary Care Physician Patient Instructions: Chronic Pain, Low Back Pain (DC) Add. Discharge Instructions: follow up with your PCP in 2 to 3 days if not improving, sooner if worse All discharge instructions reviewed with patient and/or family. Voiced understanding. MY MARTINEZ DO Jul 06, 2021 19:53
[2021-07-06] MEDS ORDERED: HYDROcodone/APAP 5 MG/325 MG (LORTAB) TAB ONE (19:57)
[2021-07-06 19:59] VITALS: BP 146/74
[2021-07-06] MEDS ORDERED: HYDROcodone/APAP 5 MG/325 MG (LORTAB) TAB PO ONE (20:00)
== END 2021-07-06 20:00 | disposition home or self-care (01) ==
LOC: EDUNIT# 19:39 → ER FS 19:40
DX: S39.012A Strain of muscle, fascia and tendon of lower back, initial encounter (principal); G89.29 Other chronic pain; Z79.82 Long term (current) use of aspirin; W01.0XXA Fall on same level from slipping, tripping and stumbling without subsequent striking against object, initial encounter
CPT/HCPCS: 99283

== ENCOUNTER 2023-02-10 18:27 | Emergency (ER) | payer MEDICARE ==
[2023-02-10] MEDS ORDERED: morphine INJ 10 MG/ML 1ML (SYR OR VIAL) IM STA (18:36)
--- NOTE | 2023-02-10 18:50 | ED Lower Extremity ---
General Chief Complaint: Lower Extremity Stated Complaint: R ANKLE PAIN Source: patient History of Present Illness Date Seen by Provider: February 10, 2023 Time Seen by Provider: 18:31 Initial Comments 67-year-old male presenting by private vehicle with complaints of right ankle pain. He states he was going up stairs and his left leg slipped causing him to bring his weight down on the right. He has had prior reconstruction surgery on the right ankle. He has severe pain and states that he cannot bear weight. He cries out with pain when he tries to wiggle his toes. He has sensation intact to light touch however he complains of severe pain with even light touch. He has possible swelling to the ankle and complains of pain both medially and laterally. He reports that this happened just prior to coming to the emergency department so within the last hour. He has not tried to take anything for his severe pain. Onset: just prior to arrival Severity: severe Pain/Injury Location: right ankle Method of Injury: fell Modifying Factors: Worse With Movement Allergies and Home Medications Allergies Coded Allergies: fentanyl (Verified Allergy, Mild, 08/03/20) reports causes bp to go "jimy high and heart rate to go real fast" ketorolac (Verified Allergy, Unknown, 07/06/21) Patient Home Medication List Home Medication List Reviewed: Yes Aspirin (Aspirin EC) 81 Mg Tablet.dr, 81 MG PO DAILY Prescribed by: OTONIEL WATKINS on 08/04/20 110 Atorvastatin Calcium (Atorvastatin Calcium) 80 Mg Tablet, 80 MG PO HS Prescribed by: OTONIEL WATKINS on 08/04/20 110 Hydrocodone/Acetaminophen (Hydrocodone-Acetamin 5-325 mg) 5 Mg-325 Mg Tablet, 1 TAB PO Q4H PRN for PAIN SEVERE Prescribed by: JERARDO SINGLETON on 02/10/231919 Lisinopril (Lisinopril) 40 Mg Tablet, 20 MG PO DAILY Prescribed by: OTONIEL WATKINS on 08/04/20 110 Metoprolol Succinate (Metoprolol Succinate) 50 Mg Tab.er.24h, 50 MG PO DAILY Prescribed by: OTONIEL WATKINS on 08/04/20 110 Ticagrelor (Brilinta) 90 Mg Tablet, 90 MG PO BID Prescribed by: OTONIEL WATKINS on 08/04/20 110 Torsemide (Torsemide) 10 Mg Tablet, 10 MG PO DAILY PRN for EDEMA, (Reported) Entered as Reported by: SAÚL ALBARADO on 08/03/20 0958 Review of Systems Constitutional: No chills, No fever EENTM: no symptoms reported Respiratory: no symptoms reported Cardiovascular: no symptoms reported Gastrointestinal: no symptoms reported Genitourinary: no symptoms reported Musculoskeletal: see HPI Skin: No change in color Psychiatric/Neurological: Anxiety Past Tmgqqmn-Gdkzgd-Nmubnr Hx Patient Social History Tobacco Use?: No Use of E-Cig and/or Vaping dev: No Substance use?: No Alcohol Use?: No Pt feels they are or have been: No Immunizations Up To Date Tetanus Booster (TDap): Less than 5yrs Influenza Vaccine Up-to-Date: No; Not Current First/Initial COVID19 Vaccinat: Denies Seasonal Allergies Seasonal Allergies: No Past Medical History Surgery/Hospitalization HX: HTN; High Cholesterol; Right ankle reconstruction; Back fusion; Neck surgery; Cardiac Stent x2; CAD Surgeries: Yes (Rhinoplasty, Fusions neck and back for fractures) Coronary Stent, Gallbladder, Orthopedic Respiratory: No Cardiac: Yes (Coronary stents x 2, off blood thinner) Neurological: No Genitourinary: No Gastrointestinal: No Musculoskeletal: No Chronic Back Pain Endocrine: No HEENT: No Cancer: No Psychosocial: No Integumentary: No Blood Disorders: No Family Medical History FH: atrial fibrillation 19 FATHER Physical Exam Vital Signs Vital Signs - First Documented 02/10/23 18:30 Temp 36.6 Pulse 80 Resp 18 B/P (MAP) 157/99 (118) Pulse Ox 100 O2 Delivery Room Air Capillary Refill : Height, Weight, BMI Height: '" Weight: lbs. oz. kg; 29.35 BMI Method: General Appearance: WD/WN, no apparent distress Cardiovascular: normal peripheral pulses Knees: bilateral knee non-tender, bilateral knee normal inspection, bilateral knee normal range of motion Ankles: right ankle limited range of motion (due to pain), right ankle pain, right ankle soft tissue tenderness, right ankle swelling Neurologic/Tendon: normal sensation, normal motor functions Neurologic/Psychiatric: alert, oriented x 3 Skin: normal color, warm/dry; No ecchymosis Progress/Results/Core Measures Results/Orders My Orders Orders - JERARDO SINGLETON MD Morphine Injection (Morphine Injection (02/10/23 18:36) Ice: Apply To Affected Area (02/10/23 18:37) Ankle 3 View Right (02/10/23 18:42) Rx-Hydrocodone/Apap 5-325 Mg (Rx-Vicodin (02/10/23 19:30) Medications Given in ED Current Medications Medications Dose Ordered Sig/Awa Route Start Time Stop Time Status Last Admin Dose Admin Acetaminophen/ Hydrocodone Bitart 1 ea Q4H PRN PO 02/10/23 19:30 02/10/23 19:25 DC 02/10/23 19:22 1 EA Vital Signs/I&O 02/10/23 02/10/23 18:30 19:23 Temp 36.6 36.6 Pulse 80 80 Resp 18 18 B/P (MAP) 157/99 (118) 157/99 Pulse Ox 100 100 O2 Delivery Room Air Room Air Progress Progress Note #1: Progress Note Potential diagnosis of ankle fracture, ankle sprain, hardware malfunction. Patient reports that his pain is severe and when offered a shot versus a pain pill he requested a shot. Will administer morphine 4 mg IM as his chart shows that fentanyl and Toradol and caused him to have high blood pressure and a fast heart rate. He denies hitting his head or losing consciousness. Ice and elevate to help with pain. Obtain x-rays of the right ankle to evaluate for possible bony abnormality. Progress Note #2: Time: 18:52 Progress Note On my personal interpretation and review I did not appreciate any acute fracture or dislocation on the three-view films of the right ankle. Awaiting radiology overread. With his complaint of severe pain will at least place a ankle stirrup if not a walking boot and see if he has crutches or a walker to help with ambulation for weightbearing as tolerated. We will review the prescription monitoring program to look for any evidence of other controlled substance prescriptions and plan on prescribing a narcotic pain medicine form for home. Will provide orthopedic information for follow-up if he is having continued pain and not improving. 1914 I reviewed the radiologist report at 1914 and they also did not see any acute fracture or dislocation. He has extensive arthritic changes. On review of the prescription drug monitoring program patient had been getting prescriptions for hydrocodone 5/325 mg and getting 112 pills for a month supply. However his last fill was January 12. He states that he did not come in early enough to get the prescription refilled this month and he needed to follow-up with Julia Lange to get that refilled. He reports that he does not have any of the narcotic pain medication at home currently. We will provide him with a few pills tonight to try and help with the pain and [facility] in the morning to get him by 3 days until he can get refill with clinic. Give contact information for nurse practitioner Bandar Jimenez and physician Dr. Tato Mancuso so the patient could follow-up with orthopedics if he continues to have problems. If his pain is not improving he might require CT or MRI to look for occult fracture or ligamentous/soft tissue injury. He reports that he already has a walking boot as well as a knee scooter, crutches and a walker. We will have him be weightbearing as tolerated at home and use the device as he already has. Try to rest and elevate his leg is much as possible. As he is not currently taking a blood thinner he could take ibuprofen or naproxen to try and help with pain as well. 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 Deformity of the distal fibula possibly due to an old fracture with superimposed osteoarthritic findings. Large spurs is seen along the dorsum of the talus which is deformed chronically in nature. No definite acute fractures identified. No dislocations. IMPRESSION: 1. Marked chronic findings as above with no acute process appreciated. Dictated on workstation # [id number] Dict: 02/10/231899 Trans: 02/10/231904 [facility] [id number] Interpreted by: TRISHA WATSON MD Electronically signed by: Reviewed: Reviewed by Me (I reviewed the radiologist report at 1915) Departure Impression Primary Impression: Right ankle pain Qualified Codes: M25.571 - Pain in right ankle and joints of right foot Additional Impression: Right ankle injury Qualified Codes: S99.911A - Unspecified injury of right ankle, initial encounter Disposition: 01 HOME, SELF-CARE Condition: Stable Departure-Patient Inst. Decision time for Depature: 19:19 Referrals: MAURICIO JIMENEZ JUSTIN S MD STICE, AMANDA S APRN (PCP) Primary Care Physician Patient Instructions: Ankle Sprain ED, Walking Boot, Opioids for Short-Term Treatment of Pain ED Add. Discharge Instructions: Use ice 15 to 20 minutes every few hours as needed to help with pain and swelling. Try to keep your ankle and foot elevated above waist level to help with pain and swelling. Use your boot at home to help with stabilizing the ankle. You can could also u se your knee scooter. Use crutches and/or walker to help with weightbearing as you tolerate it due to pain. If you are still having severe pain by the first part of the week then check back with the clinic. You may need to see orthopedics and/or have more advanced imaging than the plain films that were done tonight. You could check with your primary care provider, nurse practitioner Julia Lange, or you could check with orthopedics by seeing nurse practitioner Bandar Jimenez or physician Dr. Tato Mancuso. Since you are not taking the blood thinner currently you could take an anti- inflammatory such as Ibuprofen or Naproxen to try and help with pain and swelling for next 3-5 days. All discharge instructions reviewed with patient and/or family. Voiced underst anding. Scripts Hydrocodone/Acetaminophen (Hydrocodone-Acetamin 5-325 mg) 5 Mg-325 Mg Tablet 1 TAB PO Q4H PRN for PAIN SEVERE for 3 Days, #18 TAB 0 Refills Prov: JERARDO SINGLETON MD 02/10/23 JERARDO SINGLETON MD February 10, 2023 18:50
[2023-02-10] MEDS ORDERED: OXYC1TAB11 PO (18:55)
--- NOTE | 2023-02-10 19:05 | Diagnostic Imaging Report ---
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 Deformity of the distal fibula possibly due to an old fracture with superimposed osteoarthritic findings. Large spurs is seen along the dorsum of the talus which is deformed chronically in nature. No definite acute fractures identified. No dislocations. IMPRESSION: 1. Marked chronic findings as above with no acute process appreciated. Dictated by: Dictated on workstation # [id number]
[2023-02-10] MEDS ORDERED: ACHD5005 PO (19:20)
[2023-02-10 19:23] VITALS: BP 157/99
== END 2023-02-10 19:25 | disposition home or self-care (01) ==
LOC: EDUNIT# 18:27 → ER FS 18:28
DX: S99.911A Unspecified injury of right ankle, initial encounter (principal); Z96.661 Presence of right artificial ankle joint; Z88.5 Allergy status to narcotic agent; Z28.310 Unvaccinated for COVID-19; W01.0XXA Fall on same level from slipping, tripping and stumbling without subsequent striking against object, initial encounter
CPT/HCPCS: 73610